=== PATIENT | female | born 1965 | race Asian ===

== ENCOUNTER → 2019-08-26 15:42 | Outpatient (ROUT) | payer OTHER, SELFPAY ==
[2019-08-26 15:59] LABS: Cholesterol 236 mg/dL (140-199); HDL Cholesterol 75 mg/dL (40-60); LDL Cholesterol Calculated 134 mg/dL (<100); Triglycerides 133 mg/dL (35-150)
== END ==
PROVIDERS: PCP Internal Medicine; Visit Provider Internal Medicine
DX: E78.5 Hyperlipidemia, unspecified (principal)
CPT/HCPCS: 80061

== ENCOUNTER → 2019-08-29 16:16 | Outpatient (CLI) | payer OTHER, SELFPAY ==
--- NOTE | 2019-08-29 | DI.MG.S_ITS ---
BILATERAL DIGITAL SCREENING MAMMOGRAM 3D/2D WITH CAD: 08/29/2019 CLINICAL: Routine screening. Comparison is made to exams dated: 07/04/2015 mammogram - [facility], 01/13/2017 mammogram, 07/28/2017 mammogram, and 02/09/2018 mammogram - [facility]. The tissue of both breasts is heterogeneously dense. This may lower the sensitivity of mammography. Current study was also evaluated with a Computer Aided Detection (CAD) system. No significant masses, calcifications, or other findings are seen in either breast. There has been no significant interval change. IMPRESSION: NEGATIVE There is no mammographic evidence of malignancy. A 1 year screening mammogram is recommended. This exam was interpreted at Station ID: [id number]. NOTE: For mammograms, a report in lay terms will be sent to the patient. Approximately 15% of breast malignancies will not be visualized mammographically. In the management of a palpable breast mass, a negative mammogram must not discourage biopsy of a clinically suspicious lesion. Electronically Signed By: Karlie santa/ashok:09/02/2019 15:50:01 letter sent: Normal Exam ACR BI-RADS Category 1: Negative 3341F
== END ==
PROVIDERS: PCP Internal Medicine; Visit Provider Internal Medicine
DX: Z12.31 Encounter for screening mammogram for malignant neoplasm of breast (principal)
CPT/HCPCS: 77063; 77067

== ENCOUNTER → 2020-09-04 10:42 | Outpatient (CLI) | payer OTHER, SELFPAY ==
--- NOTE | 2020-09-04 | DI.MG.S_ITS ---
BILATERAL DIGITAL SCREENING MAMMOGRAM 3D/2D WITH CAD: 09/04/2020 CLINICAL: Routine screening. Comparison is made to exams dated: 08/29/2019 mammogram - [facility], 02/09/2018 mammogram, and 07/28/2017 mammogram - [facility]. The tissue of both breasts is heterogeneously dense. This may lower the sensitivity of mammography. Current study was also evaluated with a Computer Aided Detection (CAD) system. No significant masses, calcifications, or other findings are seen in either breast. There has been no significant interval change. IMPRESSION: NEGATIVE There is no mammographic evidence of malignancy. A 1 year screening mammogram is recommended. This exam was interpreted at Station ID: [id number]. NOTE: For mammograms, a report in lay terms will be sent to the patient. Approximately 15% of breast malignancies will not be visualized mammographically. In the management of a palpable breast mass, a negative mammogram must not discourage biopsy of a clinically suspicious lesion. Electronically Signed By: Stevie vuong/ashok:09/04/2020 12:36:21 letter sent: Normal Exam ACR BI-RADS Category 1: Negative 3341F
== END ==
PROVIDERS: PCP Internal Medicine; Referring Provider Internal Medicine; Visit Provider Internal Medicine
DX: Z12.31 Encounter for screening mammogram for malignant neoplasm of breast (principal)
CPT/HCPCS: 77063; 77067

== ENCOUNTER → 2021-05-11 11:13 | Outpatient (CLI) | payer OTHER, SELFPAY ==
--- NOTE | 2021-05-11 | DI.RAD.S_ITS ---
PROCEDURE: XR CERVICAL SPINE 4V OR 5V INDICATIONS: Other spondylosis, cervical region TECHNIQUE: Five views of the cervical spine acquired. COMPARISON: None. FINDINGS: Bones: There is reversal of the normal cervical lordosis with a kyphotic apex at the C4-5 level. There is anterolisthesis, grade 1 of C7 on T1 secondary to moderate facet arthropathy. Moderate disc height loss at C4-5. Mild endplate spurring from C3 through C6. Oblique images demonstrate uncovertebral joint hypertrophy and mild foraminal narrowing on the right at C3-4 and C4-5. Left oblique image is suboptimal. Soft tissues: No prevertebral soft tissue swelling. IMPRESSION: 1. Mild cervical kyphosis at C4-5 may be partially due to muscle spasm and/or degenerative change. 2. Facet arthropathy results in grade 1 C7 on T1 anterolisthesis. 3. Uncovertebral joint hypertrophy and right foraminal narrowing in the upper cervical spine, likely accentuated by mild cervical kyphosis. Consider MR imaging for further detail, particularly given nondiagnostic left oblique image. Dictated by: Preeti Perales M.D. on 05/11/2021 at 14:49 Approved by: Preeti Perales M.D. on 05/11/2021 at 14:52
== END ==
PROVIDERS: PCP Student in an Organized Health Care Education/Training Program; Referring Provider Student in an Organized Health Care Education/Training Program; Visit Provider Student in an Organized Health Care Education/Training Program
DX: M47.892 Other spondylosis, cervical region (principal); M40.202 Unspecified kyphosis, cervical region; M47.812 Spondylosis without myelopathy or radiculopathy, cervical region; M48.02 Spinal stenosis, cervical region
CPT/HCPCS: 72050

== ENCOUNTER → 2021-06-23 10:13 | Outpatient (CLI) | payer OTHER, SELFPAY ==
[2021-06-23 12:53] LABS: COVID19 -Nasal RAPID Negative (Negative)
== END ==
PROVIDERS: PCP Student in an Organized Health Care Education/Training Program; Visit Provider Nurse Practitioner Family
DX: Z20.822 Contact with and (suspected) exposure to COVID-19 (principal)
CPT/HCPCS: 87635

== ENCOUNTER 2021-06-25 12:06 | Day surgery (SDC) | payer OTHER, SELFPAY ==
--- NOTE | 2021-06-25 11:31 | P.HPOB_ITS ---
OB HPI Date/Time Date of admission: 06/25/21 History of Present Condition Chief complaint: SDC Narrative: 55 Years Old Female seen today for consideration of a screening colonoscopy. There have been no lower GI symptoms suggesting disease such as change in bowel habits, bleeding, abdominal pain or anemia. There's been no family history of colon cancer or colon polyps. Overall health issues have been stable, including no major cardiac events for at least 6 weeks. 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 Social History Smoking Status: Never smoker alcohol intake: current Meds Home Medications and Allergies Home Medications Medication Instructions Recorded Confirmed Type celecoxib 200 mg capsule (Celebrex) 200 mg PO DAILY #30 cap 05/31/21 05/31/21 Rx cholecalciferol (vitamin D3) 50 50 mcg PO DAILY 05/31/21 05/31/21 History mcg (2,000 unit) capsule cyclobenzaprine 5 mg tablet 10 mg PO BEDTIME PRN #30 tab 05/31/21 05/31/21 Rx Allergies Allergy/AdvReac Type Severity Reaction Status Date / Time codeine Allergy Intermediate Nausea Verified 06/25/21 12:18 latex Allergy Intermediate Rash Verified 06/25/21 12:18 Review of Systems Review of Systems Narrative: All remaining ROS were reviewed and negative except as addressed. OB Exam Narrative Exam Narrative: GENERAL: Alert and oriented, appearing stated age and in no acute distress. HEENT: Head normocephalic/atraumatic. LUNGS: Clear to ausculation bilaterally, no wheezes, rhonchi or rales. CV: Normal S1 and S2 with regular rate and rhythm, no audible murmurs, rubs or gallops. ABDOMEN: Soft, non-tender, non-distended, no organomegaly. Positive bowel sounds. EXTREMITIES: No clubbing, cyanosis, or edema. NEURO: Cranial nerves II through XII grossly intact, no focal deficits. PSYCH: Alert and oriented x 3. SKIN: No concerning lesions. Assessment and Plan Assessment and Plan Assessment and Plan narrative: 1. Screening for colon cancer Plan for colonoscopy. The nature and character of the procedure as well as anticipated results were discussed. The possibility of not completing the procedure was also discussed. Possible complications including aspiration pneumonia, bleeding, perforation and reaction to medications either for sedation or preparation and missed lesions were discussed. Questions were answered and proceeding to the colonoscopy was elected. Informed consent signed. I sincerely appreciate the referral allowing me to participate in this patient's care. Please contact me with any questions or concerns.
--- NOTE | 2021-06-25 11:35 | PM.OP.COLON ---
Operative Date/Time/Diagnoses Date of procedure: 06/25/21 Procedure Notes Procedure in detail: ENDOSCOPIST: Michelle Velasquez MD Sedation RN: Ajay Grande RN Sedation start time: 1:47 p.m. Sedation end time: 2:02 p.m. PROCEDURE: Colonoscopy INDICATIONS: 1. Screening for colon cancer MEDICATION: Levsin 0.125 mg sublingual, incremental doses of Versed and fentanyl until appropriate level sedation achieved. ASA CLASS: 2 CECAL WITHDRAWAL TIME: 6 minutes COMPLICATIONS: None. EXTENT OF PROCEDURE: Cecum. QUALITY OF PREP: Good with portions of liquid stool. PROCEDURE: Prior to insertion of the colonoscope, a digital rectal examination was accomplished with circumferential palpation of the distal rectal mucosa without significant findings being noted. The high-definition pediatric colonoscope was passed into the rectum in the usual fashion and advanced over to the cecum without difficulty. The ileocecal valve, appendiceal stoma, and medial wall all could be inspected and no abnormalities were seen. ASCENDING COLON: As the colonoscope was withdrawn, care was taken to expose and inspect the haustral folds and no abnormalities were seen. HEPATIC FLEXURE: Normal, no polyps, diverticula or other abnormalities. TRANSVERSE COLON: Normal, no polyps, diverticula or other abnormalities. DESCENDING COLON: Normal, no polyps, diverticula or other abnormalities. SIGMOID COLON: Normal, no polyps, diverticula or other abnormalities. RECTUM: Normal. J maneuver was produced. There was no significant perianal disease. The J maneuver was broken. The remainder of the rectum was inspected and there was no external hemorrhoid disease. The scope was withdrawn. IMPRESSION: 1. Normal colonoscopy PLAN: 1. Repeat colonoscopy in 10 years. The possibility of a missed lesion including a malignancy has been discussed with the patient previously. Potential alarm symptoms have been discussed and should be reported immediately.
[2021-06-25] MEDS: LACTATED RINGERS 1,000 ML 200 ML IV (12:16)
[2021-06-25] MEDS: HYOSCYAMINE 0.125 MG TABLET PO (12:16)
[2021-06-25 12:27] VITALS: BP 119/80; PULSE 71; RESP 14; TEMP 36.2; O2SAT 98; BMI 43.4
--- NOTE | 2021-06-25 13:30 | PM.HP.1 ---
History of Present Illness History of Present Illness Chief [place] [facility] Narrative: 55 Years Old Female seen today for consideration of a screening colonoscopy. There have been no lower GI symptoms suggesting disease such as change in bowel habits, bleeding, abdominal pain or anemia. There's been no family history of colon cancer or colon polyps. Overall health issues have been stable, including no major cardiac events for at least 6 weeks. 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 Tobacco & Substance use: Smoking Status Never smoker alcohol intake current Substance Use Type does not use Meds Home Medications and Allergies Home Medications Medication Instructions Recorded Confirmed Type celecoxib 200 mg capsule (Celebrex) 200 mg PO DAILY #30 cap 05/31/21 05/31/21 Rx cholecalciferol (vitamin D3) 50 50 mcg PO DAILY 05/31/21 05/31/21 History mcg (2,000 unit) capsule cyclobenzaprine 5 mg tablet 10 mg PO BEDTIME PRN #30 tab 05/31/21 05/31/21 Rx Allergies Allergy/AdvReac Type Severity Reaction Status Date / Time codeine Allergy Intermediate Nausea Verified 06/25/21 12:18 latex Allergy Intermediate Rash Verified 06/25/21 12:18 Review of Systems Review of Systems Narrative: All remaining ROS were reviewed and negative except as addressed. Exam Vital Signs (past 8 hours): - 06/25/21 12:27 Temperature 97.2 F L Pulse Rate 71 Respiratory Rate 14 Blood Pressure 119/80 Pulse Oximetry 98 Oxygen Delivery Method Room Air Narrative Exam Narrative: GENERAL: Alert and oriented, appearing stated age and in no acute distress. HEENT: Head normocephalic/atraumatic. LUNGS: Clear to ausculation bilaterally, no wheezes, rhonchi or rales. CV: Normal S1 and S2 with regular rate and rhythm, no audible murmurs, rubs or gallops. ABDOMEN: Soft, non-tender, non-distended, no organomegaly. Positive bowel sounds. EXTREMITIES: No clubbing, cyanosis, or edema. NEURO: Cranial nerves II through XII grossly intact, no focal deficits. PSYCH: Alert and oriented x 3. SKIN: No concerning lesions. Assessment & Plan Assessment & Plan narrative: 1. Screening for colon cancer Plan for colonoscopy. The nature and character of the procedure as well as anticipated results were discussed. The possibility of not completing the procedure was also discussed. Possible complications including aspiration pneumonia, bleeding, perforation and reaction to medications either for sedation or preparation and missed lesions were discussed. Questions were answered and proceeding to the colonoscopy was elected. Informed consent signed. I sincerely appreciate the referral allowing me to participate in this patient's care. Please contact me with any questions or concerns.
[2021-06-25] MEDS: fentaNYL 250 MCG/5 ML INJ IV (14:05)
[2021-06-25] MEDS: MIDAZOLAM 5 MG/5 ML VIAL IV (14:06)
[2021-06-25 14:07] VITALS: BP 110/63; PULSE 61; RESP 14; TEMP 36.8; O2SAT 99
[2021-06-25 14:12] VITALS: BP 108/63; PULSE 64; RESP 12; O2SAT 99
[2021-06-25 14:17] VITALS: BP 97/63; PULSE 63; RESP 16; O2SAT 99
[2021-06-25 14:22] VITALS: BP 105/74; PULSE 62; RESP 15; TEMP 36.6; O2SAT 100
[2021-06-25 14:27] VITALS: BP 115/78; PULSE 60; RESP 16; TEMP 36.6; O2SAT 99
== END 2021-06-25 14:45 | disposition home or self-care (01) ==
PROVIDERS: PCP Student in an Organized Health Care Education/Training Program; Referring Provider Student in an Organized Health Care Education/Training Program; Visit Provider Student in an Organized Health Care Education/Training Program
PROC: 0DJD8ZZ Inspection of Lower Intestinal Tract, Via Natural or Artificial Opening Endoscopic (ICD-10-PCS; CPT 45378; principal; 2021-06-25 13:00)
DX: Z12.11 Encounter for screening for malignant neoplasm of colon (principal)
CPT/HCPCS: 45378; J2250; J3010

== ENCOUNTER → 2021-07-01 14:12 | Outpatient (CLI) | payer OTHER, SELFPAY | PROVIDERS: Family Provider Student in an Organized Health Care Education/Training Program; PCP Student in an Organized Health Care Education/Training Program; Referring Provider Physical Medicine & Rehabilitation; Visit Provider Physical Medicine & Rehabilitation | DX: M54.12 Radiculopathy, cervical region (principal); M47.812 Spondylosis without myelopathy or radiculopathy, cervical region; R20.2 Paresthesia of skin | CPT/HCPCS: 95886; 95912 ==

== ENCOUNTER → 2021-07-09 11:06 | Outpatient (CLI) | payer OTHER, SELFPAY ==
--- NOTE | 2021-07-09 11:07 | DI.MRI.S_ITS ---
PROCEDURE: MR CERVICAL SPINE WO CON INDICATIONS: ue paresthesias TECHNIQUE: Noncontrast sagittal T1 spin echo and T2 fast spin echo, sagittal STIR, foraminal oblique sagittal T2 fast spin echo, and axial gradient echo or T2 fast spin echo through the cervical spine. COMPARISON: None. FINDINGS: Image quality: Excellent. Alignment and Curvature: Straightening of the normal lordotic curvature. Trace retrolisthesis of C5 on C6. Grade 1 anterolisthesis of C7-T1. Bone Marrow: Macro endplate. No acute fracture identified. Spinal Cord: Visualized spinal cord has normal size and signal. No cerebellar tonsillar herniation. Paraspinous Soft Tissues: No paravertebral masses. Prevertebral soft tissues are normal in thickness. Partially visualized presumed the sphenoid sinus disease. C2-C3: No canal stenosis. Mild right foraminal narrowing. Moderate to severe left foraminal stenosis with slight nerve root compression. C3-C4: Mild canal narrowing. Effacement of the anterior thecal sac and mild mass effect on the cord. Moderate right foraminal narrowing, with borderline nerve root compression. Severe left foraminal stenosis with nerve root compression C4-C5: Mild canal narrowing. Severe right foraminal stenosis with nerve root compression. Severe left foraminal stenosis with nerve root compression C5-C6: Mild canal narrowing. Moderate right foraminal stenosis and there is mild nerve root compression. Moderate left foraminal narrowing. C6-C7: Mild canal narrowing. Mild to moderate right foraminal stenosis. Mild left foraminal narrowing C7-T1: Minimal canal narrowing. Severe right foraminal stenosis with nerve root compression. Moderate left foraminal stenosis with slight nerve root compression IMPRESSION: Multilevel cervical spondylosis and facet arthropathy Diffuse bilateral foraminal stenoses as detailed above by spinal level. Straightening of the normal lordotic curvature. Multilevel spondylolisthesis as above. Sphenoid sinus disease. Dictated by: Josue Ornelas M.D. on 07/09/2021 at 11:43 Approved by: Josue Ornelas M.D. on 07/09/2021 at 11:52
== END ==
PROVIDERS: Family Provider Student in an Organized Health Care Education/Training Program; PCP Student in an Organized Health Care Education/Training Program; Referring Provider Physical Medicine & Rehabilitation; Visit Provider Physical Medicine & Rehabilitation
DX: M47.22 Other spondylosis with radiculopathy, cervical region (principal); M48.02 Spinal stenosis, cervical region; M43.13 Spondylolisthesis, cervicothoracic region; J32.3 Chronic sphenoidal sinusitis; R20.2 Paresthesia of skin
CPT/HCPCS: 72141

== ENCOUNTER → 2021-07-21 14:40 | Outpatient (CLI) | payer OTHER, SELFPAY ==
[2021-07-21 15:53] LABS: Add Manual Diff / Slide Review NO; Basophils Absolute Auto 0 /uL (0-100); Basophils Percent Auto 0.7 % (0-2); Eosinophils Absolute Auto 100 /uL (0-450); Eosinophils Percent Auto 2.1 % (2-4); Hematocrit 39.1 % (36-46); Hemoglobin 13.2 g/dL (12.0-16.0); Lymphocytes Absolute Auto 1300 /uL (1100-4500); Lymphocytes Percent Auto 30.4 % (25-40); Mean Corpuscular HGB Conc 33.6 % (30-36); Mean Corpuscular Hemoglobin 35.2 PG (26-34); Mean Corpuscular Volume 104.7 fL (80-100); Monocytes Absolute Auto 300 /uL (0-900); Monocytes Percent Auto 6.6 % (3-14); Neutrophils Absolute Auto 2600 /uL (1500-7000); Neutrophils Percent Auto 60.2 % (50-75); Platelet Count 191 X10^3/uL (150-400); Red Blood Cell Count 3.73 X10^6/uL (4.0-5.2); Red Cell Distribution Width 13.1 % (11.6-14.8); White Blood Cell Count 4.3 X10^3/uL (4.5-11.0)
[2021-07-21 16:09] LABS: Alanine Aminotransferase 17 IU/L (<35); Albumin 4.4 g/dL (3.5-5.0); Albumin Globulin Ratio 1.3 (1.0-2.8); Alkaline Phosphatase 25 U/L (38-126); Aspartate Aminotransferase 36 IU/L (14-36); BUN Creatinine Ratio 17.8 (6-22); Bilirubin Total 0.6 mg/dL (0.2-1.3); Blood Urea Nitrogen 19 mg/dL (7-17); Calcium 9.3 mg/dL (8.4-10.2); Carbon Dioxide 30 mmol/L (22-32); Chloride 99 mmol/L (98-107); Estimated Glomerular Filt Rate 53.2 mL/min (>60); Globulin 3.3 g/dL (1.7-4.1); Glucose 92 mg/dL (70-100); HEMOLYSIS < 15 (0-50); Sodium 136 mmol/L (137-145); Total Protein 7.7 g/dL (6.3-8.2)
[2021-07-21 16:12] LABS: Rheumatoid Factor < 8.6 IU/mL (<12.0)
[2021-07-21 16:15] LABS: Erythrocyte Sedimentation Rate 20 MM/HR (0-20)
[2021-07-21 16:41] LABS: Vitamin D 25 Hydroxy (D3) 38.1 ng/mL (30.0-100.0)
[2021-07-21 16:58] LABS: Vitamin B12 690 pg/mL (239-931)
[2021-07-21 17:09] LABS: TSH w/ Reflex to FT4 1.04 uIU/mL (0.47-4.68)
[2021-07-23 15:47] LABS: ANA Screen, IFA Negative (.)
== END ==
PROVIDERS: Family Provider Student in an Organized Health Care Education/Training Program; PCP Student in an Organized Health Care Education/Training Program; Referring Provider Physical Medicine & Rehabilitation; Visit Provider Physical Medicine & Rehabilitation
DX: R20.2 Paresthesia of skin (principal)
CPT/HCPCS: 36415; 80053; 82306; 82607; 84443; 85025; 85651; 86038; 86430

== ENCOUNTER → 2021-09-17 11:22 | Outpatient (CLI) | payer OTHER, SELFPAY ==
--- NOTE | 2021-09-17 | DI.MG.S_ITS ---
BILATERAL DIGITAL SCREENING MAMMOGRAM 3D/2D WITH CAD: 09/17/2021 CLINICAL: Routine screening. Comparison is made to exams dated: 09/04/2020 mammogram, 08/29/2019 mammogram - [facility], 02/09/2018 mammogram, and 01/13/2017 mammogram - [facility]. The tissue of both breasts is extremely dense, which lowers the sensitivity of mammography. Current study was also evaluated with a Computer Aided Detection (CAD) system. No significant masses, calcifications, or other findings are seen in either breast. There has been no significant interval change. IMPRESSION: NEGATIVE There is no mammographic evidence of malignancy. A 1 year screening mammogram is recommended. This exam was interpreted at Station ID: [id number]. NOTE: For mammograms, a report in lay terms will be sent to the patient. Approximately 15% of breast malignancies will not be visualized mammographically. In the management of a palpable breast mass, a negative mammogram must not discourage biopsy of a clinically suspicious lesion. Electronically Signed By: Lloyd rai/ashok:09/21/2021 17:27:50 letter sent: Normal Exam ACR BI-RADS Category 1: Negative 3341F
== END ==
PROVIDERS: Family Provider Student in an Organized Health Care Education/Training Program; PCP Student in an Organized Health Care Education/Training Program; Referring Provider Student in an Organized Health Care Education/Training Program; Visit Provider Student in an Organized Health Care Education/Training Program
DX: Z12.31 Encounter for screening mammogram for malignant neoplasm of breast (principal)
CPT/HCPCS: 77063; 77067

== ENCOUNTER → 2022-03-04 08:15 | Outpatient (CLI) | payer OTHER, SELFPAY ==
--- NOTE | 2022-03-04 08:16 | DI.US.S_ITS ---
PROCEDURE: US ABDOMEN COMPLETE INDICATIONS: enlarged liver on exam TECHNIQUE: Real-time scanning was performed of the abdominal and retroperitoneal organs, with image documentation. COMPARISON: None. FINDINGS: Liver: Liver is normal in size and homogeneous in echotexture. Note is made of a 2.8 cm simple cyst involving the left lobe of the liver. Gallbladder: No findings of gallstones or sludge are seen. The gallbladder wall is not thickened, measuring 3 mm or less. No specific pericholecystic fluid is seen. The sonographic Olivares sign is negative. Biliary ducts: Intrahepatic bile ducts are non-dilated. Extrahepatic bile duct caliber measures 5 mm. Normal is 6-7 mm or less in diameter, or 10 mm or less post-cholecystectomy. Pancreas: Visualized portions of the pancreas are sonographically normal. Spleen: Spleen is normal in size and homogeneous in echotexture. Kidneys: Kidneys are normal in size and echotexture. Right kidney measures 9.9 cm long; left kidney measures 10.5 cm long. No hydronephrosis or nephrolithiasis. No solid masses. Aorta: Visualized aorta is normal in caliber at less than 3 cm. Iliacs: Proximal common iliac arteries are normal in caliber at less than 2.5 cm. IVC: Intrahepatic inferior vena cava is patent. Miscellaneous: No free abdominal fluid. IMPRESSION: The liver measures within normal limits for size. Incidental note is made of a simple appearing 2.8 cm left liver cyst. Dictated by: Isreal Monteiro M.D. on 03/07/2022 at 14:03 Approved by: Isreal Monteiro M.D. on 03/07/2022 at 14:04
== END ==
PROVIDERS: Family Provider Student in an Organized Health Care Education/Training Program; PCP Internal Medicine; Referring Provider Internal Medicine Medical Oncology; Visit Provider Internal Medicine Medical Oncology
DX: K76.89 Other specified diseases of liver (principal); R16.0 Hepatomegaly, not elsewhere classified
CPT/HCPCS: 76700

== ENCOUNTER → 2022-10-06 13:53 | Outpatient (CLI) | payer OTHER, SELFPAY ==
--- NOTE | 2022-10-06 | DI.MG.S_ITS ---
BILATERAL DIGITAL SCREENING MAMMOGRAM 3D/2D WITH CAD: 10/06/2022 CLINICAL: Routine screening. Comparison is made to exams dated: 09/17/2021 mammogram, 09/04/2020 mammogram, and 08/29/2019 mammogram - . Both breasts are heterogeneously dense, which may obscure small masses (category c / 51-75% glandular tissue). Current study was also evaluated with a Computer Aided Detection (CAD) system. No significant masses, calcifications, or other findings are seen in either breast. There has been no significant interval change. IMPRESSION: NEGATIVE There is no mammographic evidence of malignancy. A 1 year screening mammogram is recommended. Based on the Tyrer Cuzick model (a risk assessment model) the patient's lifetime risk is 11.8% and her 10 year risk is 3.9%. According to the ACR, ACS, and NCCN guidelines, an annual breast MRI exam along with mammogram is recommended if the patient's lifetime risk is 20% or greater. This exam was interpreted at Station ID: [id number]. NOTE: For mammograms, a report in lay terms will be sent to the patient. Approximately 15% of breast malignancies will not be visualized mammographically. In the management of a palpable breast mass, a negative mammogram must not discourage biopsy of a clinically suspicious lesion. Electronically Signed By: Karlie santa/ashok:10/06/2022 17:33:22 letter sent: Normal Exam ACR BI-RADS Category 1: Negative 3341F
== END ==
PROVIDERS: Family Provider Student in an Organized Health Care Education/Training Program; PCP Internal Medicine; Referring Provider Internal Medicine; Visit Provider Internal Medicine
DX: Z12.31 Encounter for screening mammogram for malignant neoplasm of breast (principal)
CPT/HCPCS: 77063; 77067

== ENCOUNTER → 2022-10-21 16:46 | Outpatient (CLI) | payer OTHER, SELFPAY ==
--- NOTE | 2022-10-21 16:48 | DI.US.S_ITS ---
PROCEDURE: US ABDOMEN COMPLETE INDICATIONS: ENLARGED LIVER EVALUATE FOR CIRRHOSIS TECHNIQUE: Real-time scanning was performed of the abdominal and retroperitoneal organs, with image documentation. COMPARISON: [facility], US, US ABDOMEN COMPLETE, 03/04/2022, 8:21. FINDINGS: Liver: Liver is normal in size and homogeneous in echotexture. An anechoic cyst can be seen within the left liver that abnormal vascularity that measures up to 2.5 cm. Gallbladder: Sludge is seen within the gallbladder lumen. No findings of stones are seen. The gallbladder wall is not thickened, measuring 3 mm or less. No specific pericholecystic fluid is seen. The sonographic Olivares sign is negative. Biliary ducts: Intrahepatic bile ducts are non-dilated. Extrahepatic bile duct caliber measures 4 mm. Normal is 6-7 mm or less in diameter, or 10 mm or less post-cholecystectomy. Pancreas: Visualized portions of the pancreas are sonographically normal. Spleen: Spleen is normal in size and homogeneous in echotexture. Kidneys: Right kidney measures 8.1 cm long; left kidney measures 11 cm long. No hydronephrosis or nephrolithiasis. No solid masses. Aorta: Visualized aorta is normal in caliber at less than 3 cm. Iliacs: Proximal common iliac arteries are normal in caliber at less than 2.5 cm. IVC: Intrahepatic inferior vena cava is patent. Miscellaneous: No free abdominal fluid. IMPRESSION: No suspicious liver abnormalities are seen. No nayla cirrhosis seen on these images. A simple appearing left liver cyst is incidentally noted, similar to prior. Sludge is seen within the gallbladder, without additional sonographic signs of cholecystitis. No biliary dilatation. Small right kidney size noted. Dictated by: Isreal Monteiro M.D. on 10/21/2022 at 17:18 Approved by: sIreal Monteiro M.D. on 10/21/2022 at 17:20
== END ==
PROVIDERS: Family Provider Student in an Organized Health Care Education/Training Program; PCP Internal Medicine; Referring Provider Internal Medicine Medical Oncology; Visit Provider Internal Medicine Medical Oncology
DX: K82.8 Other specified diseases of gallbladder (principal); R16.0 Hepatomegaly, not elsewhere classified; K76.89 Other specified diseases of liver; D72.819 Decreased white blood cell count, unspecified; R63.4 Abnormal weight loss
CPT/HCPCS: 76700

== ENCOUNTER → 2023-10-17 17:45 | Outpatient (CLI) | payer OTHER, SELFPAY ==
--- NOTE | 2023-10-17 | DI.MG.S_ITS ---
BILATERAL DIGITAL SCREENING MAMMOGRAM 3D/2D WITH CAD: 10/17/2023 CLINICAL: Routine screening. Comparison is made to exams dated: 10/06/2022 mammogram, 09/17/2021 mammogram, and 09/04/2020 mammogram - [facility]. Both breasts are heterogeneously dense, which may obscure small masses (category c / 51-75% glandular tissue). Current study was also evaluated with a Computer Aided Detection (CAD) system. No significant masses, calcifications, or other findings are seen in either breast. There has been no significant interval change. IMPRESSION: NEGATIVE There is no mammographic evidence of malignancy. A 1 year screening mammogram is recommended. Based on the Tyrer Cuzick model (a risk assessment model) the patient's lifetime risk is 11.7% and her 10 year risk is 4.1%. According to the ACR, ACS, and NCCN guidelines, an annual breast MRI exam along with mammogram is recommended if the patient's lifetime risk is 20% or greater. This exam was interpreted at Station ID: [id number]. NOTE: For mammograms, a report in lay terms will be sent to the patient. Approximately 15% of breast malignancies will not be visualized mammographically. In the management of a palpable breast mass, a negative mammogram must not discourage biopsy of a clinically suspicious lesion. Electronically Signed By: Karlie santa/ashok:10/18/2023 13:11:55 letter sent: Normal Exam ACR BI-RADS Category 1: Negative 3341F
== END ==
PROVIDERS: Family Provider Student in an Organized Health Care Education/Training Program; PCP Internal Medicine; Referring Provider Internal Medicine; Visit Provider Internal Medicine
DX: Z12.31 Encounter for screening mammogram for malignant neoplasm of breast (principal); R92.333 Mammographic heterogeneous density, bilateral breasts
CPT/HCPCS: 77063; 77067

== ENCOUNTER → 2024-02-17 10:54 | Outpatient (CLI) | payer OTHER, SELFPAY ==
[2024-02-17 12:01] LABS: Add Manual Diff / Slide Review NO; Basophils Absolute Auto 0 /uL (0-100); Basophils Percent Auto 0.9 % (0-2); Eosinophils Absolute Auto 100 /uL (0-450); Hematocrit 38.2 % (36-46); Hemoglobin 12.9 g/dL (12.0-16.0); Lymphocytes Absolute Auto 1500 /uL (1100-4500); Lymphocytes Percent Auto 42.2 % (25-40); Mean Corpuscular HGB Conc 33.8 % (30-36); Mean Corpuscular Hemoglobin 35.5 PG (26-34); Monocytes Absolute Auto 200 /uL (0-900); Monocytes Percent Auto 6.2 % (3-14); Neutrophils Absolute Auto 1700 /uL (1500-7000); Neutrophils Percent Auto 47.7 % (50-75); Platelet Count 190 X10^3/uL (150-400); Red Blood Cell Count 3.64 X10^6/uL (4.0-5.2); Red Cell Distribution Width 13.1 % (11.6-14.8); White Blood Cell Count 3.7 X10^3/uL (4.5-11.0)
[2024-02-17 12:07] LABS: Alanine Aminotransferase 19 IU/L (<35); Albumin 4.1 g/dL (3.5-5.0); Albumin Globulin Ratio 1.3 (1.0-2.8); Alkaline Phosphatase 30 U/L (38-126); Aspartate Aminotransferase 33 IU/L (14-36); BUN Creatinine Ratio 30.5 (6-22); Bilirubin Total 0.9 mg/dL (0.2-1.3); Blood Urea Nitrogen 18 mg/dL (7-17); Carbon Dioxide 31 mmol/L (22-32); Chloride 101 mmol/L (98-107); Cholesterol 255 mg/dL (140-199); Estimated Glomerular Filt Rate > 60 mL/min (>60); Globulin 3.2 g/dL (1.7-4.1); Glucose 96 mg/dL (70-100); HDL Cholesterol 93 mg/dL (40-60); HEMOLYSIS < 15 (0-50); LDL Cholesterol Calculated 150 mg/dL (<100); Potassium 4.8 mmol/L (3.4-5.1); Sodium 135 mmol/L (137-145); Total Protein 7.3 g/dL (6.3-8.2); Triglycerides 62 mg/dL (35-150)
[2024-02-17 12:14] LABS: Rheumatoid Factor < 8.6 IU/mL (<12.0)
[2024-02-17 12:16] LABS: Erythrocyte Sedimentation Rate 15 MM/HR (0-20)
[2024-02-17 12:27] LABS: Free T4, Direct Thyroxine 0.96 ng/dL (0.78-2.19)
[2024-02-17 12:40] LABS: Thyroid Stimulating Hormone 0.543 uIU/mL (0.47-4.68)
[2024-02-17 12:41] LABS: Ferritin 168 ng/mL (11-264)
[2024-02-19 14:38] LABS: CCP Antibodies IgG/IgA 4 units (0-19)
== END ==
PROVIDERS: Family Provider Student in an Organized Health Care Education/Training Program; PCP Student in an Organized Health Care Education/Training Program; Referring Provider Naturopath; Visit Provider Naturopath
DX: Z00.00 Encounter for general adult medical examination without abnormal findings (principal); M25.50 Pain in unspecified joint; D50.9 Iron deficiency anemia, unspecified; Z82.61 Family history of arthritis; E78.00 Pure hypercholesterolemia, unspecified; Z82.62 Family history of osteoporosis; E03.9 Hypothyroidism, unspecified
CPT/HCPCS: 36415; 80053; 80061; 82728; 83695; 84439; 84443; 84481; 85025; 85651; 86200; 86430; 86850

== ENCOUNTER → 2024-07-29 10:21 | Outpatient (CLI) | payer OTHER, SELFPAY ==
[2024-07-30 04:36] LABS: Apolipoprotein B 115 mg/dL (<90)
== END ==
PROVIDERS: Family Provider Student in an Organized Health Care Education/Training Program; PCP Student in an Organized Health Care Education/Training Program; Referring Provider Naturopath; Visit Provider Naturopath
DX: H18.832 Recurrent erosion of cornea, left eye (principal); E78.41 Elevated Lipoprotein(a)
CPT/HCPCS: 82172; 86235

== ENCOUNTER → 2024-10-22 17:38 | Outpatient (CLI) | payer OTHER, SELFPAY ==
--- NOTE | 2024-10-22 17:40 | DI.MG.S_ITS ---
BILATERAL DIGITAL SCREENING MAMMOGRAM 3D/2D WITH CAD: 10/22/2024 CLINICAL: Routine screening. Comparison is made to exams dated: 10/17/2023 mammogram, 10/06/2022 mammogram, and 09/17/2021 mammogram - [facility]. The breasts are heterogeneously dense, which may obscure small masses (category c / 51-75% glandular tissue). Current study was also evaluated with a Computer Aided Detection (CAD) system. No significant masses, calcifications, or other findings are seen in either breast. There has been no significant interval change. IMPRESSION: NEGATIVE There is no mammographic evidence of malignancy. A 1 year screening mammogram is recommended. Based on the Tyrer Cuzick model (a risk assessment model) the patient's lifetime risk is 11.5% and her 10 year risk is 4.2%. According to the ACR, ACS, and NCCN guidelines, an annual breast MRI exam along with mammogram is recommended if the patient's lifetime risk is 20% or greater. This exam was interpreted at Station ID: [id number]. NOTE: For mammograms, a report in lay terms will be sent to the patient. Approximately 15% of breast malignancies will not be visualized mammographically. In the management of a palpable breast mass, a negative mammogram must not discourage biopsy of a clinically suspicious lesion. Electronically Signed By: Ady houser/ashok:10/23/2024 06:52:14 letter sent: Normal Exam ACR BI-RADS Category 1: Negative
== END ==
PROVIDERS: Family Provider Student in an Organized Health Care Education/Training Program; PCP Student in an Organized Health Care Education/Training Program; Referring Provider Student in an Organized Health Care Education/Training Program; Visit Provider Student in an Organized Health Care Education/Training Program
DX: Z12.31 Encounter for screening mammogram for malignant neoplasm of breast (principal); R92.333 Mammographic heterogeneous density, bilateral breasts
CPT/HCPCS: 77063; 77067